=== PATIENT | female | born 1930 | race Caucasian/White ===

== ENCOUNTER 2019-04-12 18:22 | Outpatient (CLI) | payer MEDICARE, BC ==
[~2019-04-12 18:22] MED LIST: ALBU8.5H8 INH; DIAZ5TAB5 PO; DILT120C52 PO; DOXA2TAB6 PO; ESTR1TAB19 PO; FAMO20TA8 PO; FLUT1DIS4 INH; LEVO50TA8 PO; LORA10TA7 PO; OXYB5TAB4 PO; QUIN40TA14 PO; SERT100T PO; SUCR1TAB PO; TRIA1TAB5 PO; [UNRECOGNIZED DRUG - CODE] PO
== END 2019-04-12 23:59 | disposition home or self-care (01) ==
LOC: LAB SPEC 18:22
PROVIDERS: ATTEND Family Medicine
DX: Z00.00 Encounter for general adult medical examination without abnormal findings (principal)